=== PATIENT | male | born 1960 | race Caucasian/White ===

== ENCOUNTER 2018-02-25 14:57 | Emergency (ER) | payer SELFPAY ==
[2018-02-25] MEDS ORDERED: Eye-Stream Solution ONE (15:08)
[2018-02-25] MEDS ORDERED: TETRACAINE 0.5% STERI-UNIT SOL OP ONE (15:08)
[2018-02-25] MEDS ORDERED: Fluor-I-Strip/Ful-Flo OP ONE ×2 (15:08→15:29)
--- NOTE | 2018-02-25 15:21 | ERPHSYRPT ---
- History of Present Illness Time Seen by Provider: 02/25/18 15:16 Source: patient Patient Subjective Stated Complaint: pt was cutting limbs today and now has sensation of something in left eye Triage Nursing Assessment: pt eye red, tearing, painful Physician History: mod aching irritation under the upper left eyelid today [employer], no fever, no contact lens, no NV, no headache, +tearing Allergies/Adverse Reactions: No Known Drug Allergies Allergy (Unverified 02/25/18 15:06) Hx Tetanus, Diphtheria Vaccination/Date Given: Yes (2 years) Hx Influenza Vaccination/Date Given: Yes Hx Pneumococcal Vaccination/Date Given: No Immunizations Up to Date: Yes - Review of Systems Constitutional: No Fever Eyes: Eye Pain, Eye Redness, Tearing, Foreign Body Sensation, No Discharge Respiratory: No Dyspnea Cardiac: No Chest Pain Abdominal/Gastrointestinal: No Abdominal Pain, No Nausea, No Vomiting Neurological: No Dizziness, No Headache - Past Medical History Pertinent Past Medical History: No - Past Surgical History Past Surgical History: No - Social History Smoking Status: Current every day smoker Exposure to second hand smoke: Yes Drug Use: none Patient Lives Alone: No - Nursing Vital Signs Nursing Vital Signs: Initial Vital Signs Temperature 98.4 F 02/25/18 15:01 Pulse Rate 100 H 02/25/18 15:01 Respiratory Rate 18 02/25/18 15:01 Blood Pressure 158/86 02/25/18 15:01 O2 Sat by Pulse Oximetry 96 02/25/18 15:01 Pain Scale Pain Intensity 8 - Physical Exam General Appearance: no apparent distress Eye Exam: PERRL/EOMI, other (no hyphema, 20/50 os, od, ou, +foreign body removed from under the left upper lid with moist Qtip, +corneal abrasion w/ flourescin and tetracaine exam, perrl, eomi) Neurologic Exam: alert, oriented x 3, cooperative SpO2: 96 Oxygen Delivery: Room Air - Course Nursing assessment & vital signs reviewed: Yes Ordered Tests: Medication Summary Discontinued Medications Generic Name Dose Route Start Last Admin Trade Name Freq PRN Reason Stop Dose Admin Eye Irrigation Solution Confirm 02/25/18 15:08 Eye-Stream Solution Administered 02/25/18 15:09 Dose 30 ml .ROUTE .STK-MED ONE Fluorescein Sodium Confirm 02/25/18 15:08 Ckclz-P-Rbzja/Ful-Demario Administered 02/25/18 15:09 Dose 1 mg OP .STK-MED ONE Tetracaine HCl Confirm 02/25/18 15:08 Tetracaine 0.5% Steri-Unit Chiquita Administered 02/25/18 15:09 Dose 4 ml OP .STK-MED ONE - Progress Progress: improved - Departure Time of Disposition: 15:20 Departure Disposition: Home Clinical Impression: Corneal abrasion Qualifiers: Encounter type: initial encounter Laterality: left Qualified Code(s): S05.02XA - Injury of conjunctiva and corneal abrasion without foreign body, left eye, initial encounter Condition: Stable Critical Care Time: No Referrals: Provider,Unknown [Primary Care Provider] - Instructions: Corneal Abrasion Additional Instructions: see ophthomology on Tuesday, norco warnings given, return if worse, garamycin ophtho Prescriptions: Gentamicin Sulfate Eye Drops [Garamycin 0.3% Ophth Chiquita] 5 ml OP QID 4 Days bottle Hydrocodone/APAP 5/325 [[place] 5/325 mg] 1 each PO Q4-6HPRN PRN #10 tablet MDD 4 PRN Reason: Moderate Pain
[2018-02-25] MEDS ORDERED: TETRACAINE 0.5% STERI-UNIT SOL OP STA (15:35)
[2018-02-25 15:56] VITALS: BP 126/70; PULSE 76; O2SAT 98
== END 2018-02-25 15:56 | disposition home or self-care (01) ==
LOC: ED 14:57
DX: T15.02XA Foreign body in cornea, left eye, initial encounter (principal)
CPT/HCPCS: 99283; A9270-GY